=== PATIENT | male | born 1935 | race Hispanic/Latino ===

== ENCOUNTER 2016-08-02 08:04 | Day surgery (SDC) | payer MEDICARE ==
[2016-05-21 13:26] VITALS: BMI 25.8
[2016-08-02] MEDS ORDERED: Propofol 10 mg/ml Inj (20 ML) ONE (09:26)
[2016-08-02 10:13] VITALS: TEMP 98
[2016-08-02] MEDS ORDERED: Lactated Ringer's 1,000 ML IV SCH (10:15)
[2016-08-02 14:55] VITALS: BP 127/57; PULSE 52; RESP 16; O2SAT 98
== END 2016-08-02 12:43 | disposition home or self-care (01) ==
LOC: ENDO 08:04
PROVIDERS: ATTEND Internal Medicine Gastroenterology
DX: K31.811 Angiodysplasia of stomach and duodenum with bleeding (principal); D50.9 Iron deficiency anemia, unspecified; K57.30 Diverticulosis of large intestine without perforation or abscess without bleeding; K64.8 Other hemorrhoids; I10 Essential (primary) hypertension; E78.5 Hyperlipidemia, unspecified; J44.9 Chronic obstructive pulmonary disease, unspecified
CPT/HCPCS: 43255; 45378; J2704; J7120